=== PATIENT | male | born 1980 ===

== ENCOUNTER 2020-03-02 10:04 | Day surgery (SDC) | payer OTHER ==
--- NOTE | 2020-03-01 16:13 | HP ---
ADMIT DATE: 03/02/2020 PREOPERATIVE HISTORY AND PHYSICAL DATE OF SURGERY: 03/02/2020. HISTORY OF PRESENT ILLNESS: The patient is a pleasant 39-year-old who in the past has undergone 3 lumbar surgeries at L5-S1. His most recent surgery was in 2012 which was an L5-S1 reop and fusion. He did well from that surgery and was still doing well until recently. About 6 weeks ago while he was working outside, he developed severe acute low back pain, which radiated into his left hip, left inner thigh down to his left leg and foot. He also notes numbness in his inner aspect of his left knee. He continues currently to rate his pain as a 3-4/10. If he does any activity, the pain can increase to a 10/10. He notes constant numbness in his left leg. He is only able to be up about 10-15 minutes. Lying down helps him. He said over the last 6 weeks, he has been lying down virtually all the time. He did take prednisone. He said that it did help him a little bit. He says ibuprofen and/ or diclofenac also helps some. He has been seeing a chiropractor. PAST MEDICAL HISTORY: Anemia, headache or migraine, hypertension, depression. PAST SURGICAL HISTORY: Lumbar microdiscectomy in 2008, lumbar microdiscectomy in 2009, appendectomy in 2009, a reop L5-S1 with instrumented fusion in 2012. FAMILY HISTORY: Aneurysm, cancer, hypertension, migraine headache and spine problems. 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 . He consumes alcohol 1-2 times per year. ALLERGIES: No known drug allergies. CURRENT MEDICATIONS: Diclofenac and metoprolol. REVIEW OF SYSTEMS: A 12-point review of systems was obtained and is noncontributory except that mentioned above. PHYSICAL EXAMINATION: NEUROSURGERY EXAMINATION: GENERAL APPEARANCE: Alert, pleasant, no acute distress. HEAD: Normocephalic and atraumatic. SKIN: Warm and dry. MUSCULOSKELETAL: Lumbar paraspinal muscle bulk is normal, restricted range of motion of the lumbar spine, [id number] tenderness of the lower lumbar spine with palpation, normal range of motion of the lower extremities bilaterally. EXTREMITIES: No clubbing, cyanosis or edema. NEUROLOGIC: Alert and oriented x 3. Normal recent and remote memory. Strength 5/5 in bilateral lower extremities except for 4+/5, left quadriceps strength. Sensory was intact to light touch in bilateral lower extremities except for decrease on the left anterior lateral thigh and medial knee light touch. Reflexes are present and symmetric in the lower extremities bilaterally except for an absent left knee jerk and an absent right ankle jerk, positive straight leg raising on the left at about 30 degrees with back and left thigh pain relieved by Lasegue's maneuver, positive straight leg raising on the right, antalgic gait favoring his left leg. IMAGING: I reviewed an MRI scan. On that study, postoperative changes are seen at L5-S1 and an instrumented fusion and laminectomy on the left side. On the right side at L3-L4, there is foraminal disc herniation, which is compressing the right L4 nerve root. ASSESSMENT/ PLAN: The patient has severe pain. He has been basically at bed rest for 6 weeks. He has had weakness in his left quadriceps. He has taken prednisone with minimal benefit. He has had chiropractic treatment. At this point, I think surgery could be considered, which would be a transforaminal decompression and microdiskectomy at left L3-L4 to decompress the left L4 nerve root. I discussed with him the surgery and the risks. We spoke about the expected postoperative course. He understands. He understands that this will most likely be a completely outpatient surgery. He would like to proceed. We will make the arrangements. LANE MUNSON MD DR: JULIÁN/helen JOB#: [id number] / [id number] VANNESSA
[~2020-03-02 10:04] MED LIST: BACITRACIN 50,000 UNIT in IV NORMAL SALINE 1000ML BAG 1,000 ML IRR ONE; BUPIVACAINE-EPI 0.5%-1:200000 MPF 30 ML VIAL. ONE; CALC500T30 PO; DICL50TA2 PO; GELATIN SPONGE SIZE 100. ONE; IBUP-1007 PO; KETOROLAC 60 MG/2 ML VIAL. ONE; LYSI500T8 PO; MAGN400C PO; METO-239 PO; MULT-742 PO; THROMBIN TOPICAL 20,000 UNIT SPRAY.SYRN KIT TP ONE; VITA1TAB19 PO; [UNRECOGNIZED DRUG - OTHER]; [UNRECOGNIZED DRUG - OTHER] PO; potassium otc
[2020-03-02] MEDS ORDERED: REMIFENTANIL 2 MG VIAL. IV ONE (10:28)
[2020-03-02] MEDS ORDERED: 0.9 % SODIUM CHLORIDE 20 ML VIAL. IJ ONE (10:28)
[2020-03-02] MEDS ORDERED: PROPOFOL 50 ML IV ONE ×2 (10:28→14:26)
[2020-03-02] MEDS ORDERED: PROPOFOL 10 MG/ML (20ML) VIAL. IV ONE (10:28)
[2020-03-02] MEDS ORDERED: ROCURONIUM 50 MG/5 ML VIAL. ONE (10:28)
[2020-03-02] MEDS ORDERED: fentaNYL PF VIAL 100 MCG/2 ML VIAL ONE ×2 (10:28→12:36)
[2020-03-02] MEDS ORDERED: LIDOCAINE 2% PF 5 ML VIAL. ONE (10:28)
[2020-03-02] MEDS ORDERED: IV RINGERS,LACTATED 1000ML 1,000 ML IV SCH ×2 (11:15→11:18)
[2020-03-02] MEDS ORDERED: PROCHLORPERAZINE 10 MG/2 ML VIAL. IV PRN (11:30)
[2020-03-02] MEDS ORDERED: ONDANSETRON PF 4 MG/2 ML VIAL. IV PRN (11:30)
[2020-03-02] MEDS ORDERED: fentaNYL PF VIAL 100 MCG/2 ML VIAL IV PRN ×2 (11:30)
[2020-03-02] MEDS ORDERED: MORPHINE SULFATE 2 MG/ML VIAL. IV PRN (11:30)
[2020-03-02] MEDS ORDERED: MIDAZOLAM HCL/PF 2 MG/2 ML VIAL. ONE (12:36)
[2020-03-02] MEDS ORDERED: HYDR-3164 PO (13:10)
[2020-03-02] MEDS ORDERED: DOCU-109 PO (13:10)
[2020-03-02] MEDS ORDERED: METH-38 PO (13:10)
--- NOTE | 2020-03-02 13:12 | DISCH ---
DISCHARGE INSTRUCTIONS Condition on Discharge Condition on Discharge: Stable Activity After Discharge Activity Instructions for Disc: Activity as tolerated, Avoid exertion Other activity instructions: no driving for a week Bathing Instructions: Shower-keep dressing dry, No Tub Bath until see Lifting Instructions after Dis: No heavy lifting, No pulling or pushing, Do not lift >10 pounds Diet after Discharge Additional Diet Restrictions: resume home diet Wound Incision Care Wound/Incision Care: Ice to area for comfort Other wound/incision instructi: may remove dressing in 48 hours if dry then may shower, no soaking Contacting the after DC Call your doctor for: Concerns you may have Follow-Up Follow up with: Dr. Munson's nurse in 2 weeks - [phone] MUNSON MD Mar 02, 2020 13:12
[2020-03-02] MEDS ORDERED: PHENYLEPHRINE in 0.9% NACL PF 1 MG/10 ML SYRINGE. IV ONE (13:14)
[2020-03-02] MEDS ORDERED: PHENYLEPHRINE 10 MG/ML VIAL. ONE (13:37)
[2020-03-02] MEDS ORDERED: DESFLURANE > 120 MINUTES IH ONE (14:57)
[2020-03-02] MEDS: HYDROmorphone 2 MG/ML VIAL IV PRN ×4 (15:17→15:31)
--- NOTE | 2020-03-02 15:37 | OP ---
DATE OF SURGERY: 03/02/2020 PREOPERATIVE DIAGNOSES: Foraminal disc herniation L3-L4, left with severe left lumbar radiculopathy. POSTOPERATIVE DIAGNOSES: Foraminal disc herniation L3-L4, left with severe left lumbar radiculopathy. OPERATION PERFORMED: Left Transforaminal microdiscectomy L3-L4, left. The operation was done with EMG monitoring, SSEP monitoring, fluoroscopy, microscopic dissection. SURGEON: Anatoliy Munson M.D. CONGRESSIONAL REPRESENTATIVE: CLARISSA Iglesias, who assisted with the exposure, the microdiscectomy as well as closure. OPERATIVE INDICATIONS: The patient is a pleasant 39-year-old who has undergone a number of surgeries in the distant past at L5-S1 and eventually did quite well. He then developed recently more problems with severe left anterior thigh pain and was found to have a foraminal disc herniation, left L3-L4. After he failed conservative measures, I recommended lumbar microsurgery. I spoke with him about the surgery and the risks, the technique. He wished to go ahead. DESCRIPTION OF PROCEDURE: Following general endotracheal anesthesia, the patient was positioned prone on the Joshua table. Lumbar region prepped and draped in the standard fashion. ELVIS hose and AV impulse boots were applied for DVT prophylaxis. The microscope was draped. Fluoroscopy was draped and brought into the field. Monitoring was established. Ancef 2 grams was given less than 1 hour prior to the initiation of the surgery. Using fluoroscopic guidance, a left paramedian incision was made directly over the L3-L4 interspace. I dissected the skin and subcutaneous tissue, reflected the paraspinal muscles, placed a microdisk retractor. I brought in the microscope. I burred down a hemilaminotomy and extended out over the foramen. I visualized the L3 root and followed this out laterally. The root was compressed by disc, which was bulging through the foramen and filling the foramen and also extending extraforaminal. I removed the intraforaminal disc. I followed the nerve out laterally and I began to tease back and remove further disc material laterally. I entered the disc space and performed discectomy with pituitary rongeurs. I fully decompressed the entire region. I then explored carefully, I felt that the root was quite free. I irrigated. I closed the wound in layers with absorbable suture. The skin was closed with 4-0 subcuticular stitch. Hemostasis was excellent throughout the operation. I was quite pleased with the surgery. ANATOLIY MUNSON MD DR: JULIÁN/helen JOB#: [id number] / [id number] VANNESSA
[2020-03-02] MEDS ORDERED: HYDROcodone/APAP 5/325MG 1 TAB TABLET PO ONE ×2 (15:45)
[2020-03-02 16:25] VITALS: BP 156/88
--- NOTE | 2020-03-04 18:06 | PATHOLOGY ---
[facility] Accession Number: [id number] . 01 Material submitted: . vertebral column - LUMBAR DISC AND DECOMPRESSION . 01 Clinical history: . Lumbar herniated disc with radiculopathy. . 02 Diagnosis: Segments of fibrocartilaginous and adipose tissue and bone, lumbar disc and decompression: - Degenerative changes of fibrocartilaginous tissue. LBQ 03/04/2020 1742 Local . 02 Comment: There is no evidence of an acute inflammatory process or malignancy. (JPM/db; 03/04/2020) . 02 Electronically signed: . Guille Gross MD, Pathologist NPI- [id number] . 01 Gross description: . Received in formalin labeled "Nehemias Gunter, lumbar disc and decompression" is a 3.0 x 2.5 x 0.6 cm aggregate of hand-brown bone and soft tissue fragments. Visual Merchandising Assistant tissue is submitted in cassette A1 following decalcification. ([facility] [place]; 03/03/2020) [facility] 03/03/2020 1715 Local . 02 Pathologist provided ICD-10: M51.26, M54.16 . 02 CPT . 075395, [id number] Specimen Comment: A courtesy copy of this report has been sent to [phone], [phone] Specimen Comment: [id number] Specimen Comment: Report sent to / DR QUINTERO Performed at: 01 [facility] [address], [place] [id number] MD Chuy Crowe MD Phone: [phone] Performed at: 02 [facility] [address] [place], [place] [id number] MD Guille Gross MD Phone: [phone]
== END 2020-03-02 16:30 | disposition home or self-care (01) ==
LOC: SURG 10:04
PROVIDERS: ATTEND Neurological Surgery
DX: M51.16 Intervertebral disc disorders with radiculopathy, lumbar region (principal); I10 Essential (primary) hypertension; F32.9 Major depressive disorder, single episode, unspecified; Z72.89 Other problems related to lifestyle; Z87.891 Personal history of nicotine dependence; Z98.890 Other specified postprocedural states
CPT/HCPCS: 63030; 97161; A7015; J0696; J0780; J1170; J1885; J2250; J2370; J2704; J3010; J3490; J7030; J7120; 76000; 88304; 88311